=== PATIENT | male | born 1965 | race Caucasian/White ===

== ENCOUNTER 2019-11-01 23:50 | Emergency (ER) | payer BC, OTHER ==
[2019-11-01] MEDS ORDERED: LORazepam 2 MG/ML Syringe IVPUSH ONE (23:54)
[2019-11-02] MEDS ORDERED: LORazepam 2 MG/ML Syringe IVPUSH ONE (00:08)
[2019-11-02] MEDS ORDERED: Sodium Chloride 0.9% 1,000 ML IV ONE (00:08)
[2019-11-02 00:29] LABS: CHLORIDE,CL 104 mEq/L (98-106); SODIUM,NA 142 mEq/L (136-145)
--- NOTE | 2019-11-02 00:51 | EDM.PDOC ---
ED HPI GENERAL MEDICAL PROBLEM - General Chief Complaint: General Stated Complaint: adverse side effects from marijuana Time Seen by Provider: 11/01/19 23:50 Source of Information: Reports: EMS, Family ( and daughter) History Limitations: Reports: Altered Mental Status - History of Present Illness INITIAL COMMENTS - FREE TEXT/NARRATIVE: This patient is a 54 year old male that presents to the ER. Patient arrives via EMS with daughter and mother right behind. The reports that the patient was prescribed medical marijuana. She reports that for the first time he tried to smoke it, 1/3 of it which is what he was prescribed. She reports that was about 10pm, then about 10:15pm she heard him yelling for help. She reports that the patient kept saying he was not feeling right. The patient arrives in the ER with EMS, he is confused, combative, and agitated. Onset: Today, Sudden Onset Date: 11/02/19 Onset Time: 22:15 Severity: Moderate Improves with: Reports: None Worsens with: Reports: None Associated Symptoms: Reports: Confusion. Denies: Chest Pain, Cough, cough w sputum, Diaphoresis, Fever/Chills, Headaches, Loss of Appetite, Malaise, Nausea/Vomiting, Rash, Seizure, Shortness of Breath, Syncope, Weakness - Related Data Allergies Allergy/AdvReac Type Severity Reaction Status Date / Time Sulfa (Sulfonamide Allergy Cannot Verified 11/02/19 00:20 Antibiotics) Remember Home Meds: Home Meds Cyclobenzaprine [Flexeril] 10 mg PO BEDTIME 11/02/19 [History] L.acidoph,Paracasei, B.lactis [Probiotic] 1 cap PO DAILY 11/02/19 [History] Omeprazole 20 mg PO DAILY 11/02/19 [History] Past Medical History Gastrointestinal History: Reports: GERD Musculoskeletal History: Reports: Fibromyalgia Hematologic History: Reports: Other (See Below) Other Hematologic History: thalassemia Social & Family History - Tobacco Use Smoking Status *Q: Current Every Day Smoker Years of Tobacco use: 30 Packs/Tins Daily: 0.5 - Caffeine Use Caffeine Use: Reports: None - Recreational Drug Use Recreational Drug Type: Reports: Marijuana/Hashish ED ROS GENERAL - Review of Systems Review Of Systems: See Below Constitutional: Reports: Malaise, Weakness (generally) HEENT: Reports: No Symptoms Respiratory: Reports: No Symptoms Cardiovascular: Reports: No Symptoms Endocrine: Reports: No Symptoms GI/Abdominal: Reports: No Symptoms : Reports: No Symptoms Musculoskeletal: Reports: No Symptoms Skin: Reports: No Symptoms Neurological: Reports: Confusion, Tremors Psychiatric: Reports: Agitation, Anxiety, Confusion Hematologic/Lymphatic: Reports: No Symptoms Immunologic: Reports: No Symptoms ED EXAM, GENERAL - Physical Exam Exam: See Below Exam Limited By: Altered Mental Status General Appearance: Anxious, Other (combative, agitated) Eye Exam: Bilateral Eye: Normal Inspection, PERRL Ears: Normal External Exam, Normal Canal, Hearing Grossly Normal, Normal TMs Ear Exam: Bilateral Ear: Auricle Normal, Canal Normal, TM normal Nose: Normal Inspection, Normal Mucosa, No Blood Throat/Mouth: Normal Inspection, Normal Lips, Normal Teeth, Normal Gums, Normal Oropharynx, Normal Voice, No Airway Compromise Head: Atraumatic, Normocephalic Neck: Normal Inspection, Supple, Non-Tender, Full Range of Motion Respiratory/Chest: No Respiratory Distress, Lungs Clear, Normal Breath Sounds, No Accessory Muscle Use, Chest Non-Tender, Other (sternal rub, does groan and grunt pain with voluntary movement) Cardiovascular: Normal Peripheral Pulses, No Edema, No Gallop, No JVD, No Murmur, No Rub, Tachycardia (102 on exam) Peripheral Pulses: 2+: Radial (L), Radial (R), Posterior Tibial (L), Posterior Tibial (R) GI/Abdominal: Normal Bowel Sounds, Soft, Non-Tender, No Organomegaly, No Distention, No Abnormal Bruit, No Mass, Pelvis Stable Back Exam: Normal Inspection, Full Range of Motion. No: CVA Tenderness (L), CVA Tenderness (R) Extremities: Normal Inspection, Normal Range of Motion, Non-Tender, No Pedal Edema, Normal Capillary Refill Neurological: Confused, Disoriented, Slow to Respond, Other (tremors to arms and legs, voluntary. GCS is 8. no eye opening, withdraws to pain, inappropriate words. Protecting his airway. No unilateral weaknesses. ) Psychiatric: Anxious, Other (agitated, combative.) Skin Exam: Warm, Dry, Intact, Normal Color, No Rash Lymphatic: No Adenopathy Course - Vital Signs Last Recorded V/S: Last Vital Signs Temp 97.3 F 11/02/19 00:25 Pulse 100 11/01/19 23:50 Resp 14 11/02/19 04:30 BP 160/75 H 11/02/19 04:30 Pulse Ox 98 11/02/19 04:30 - Orders/Labs/Meds Orders: Active Orders 24 hr Category Date Time Status Telemetry Monitoring [Cardiac Monitoring] [RC] . Care 11/01/19 23:30 Active DIRECTED Head wo Cont [CT] Stat Exams 11/02/19 23:54 Taken Labs: Laboratory Tests 11/02/19 11/02/19 11/02/19 Range/Units 00:06 00:06 00:06 WBC 17.0 H (5.0-10.0) 10^3/uL RBC 5.59 (4.50-6.00) 10^6/uL Hgb 11.6 L (14.0-18.0) g/dL Hct 35.2 L (40.0-54.0) % MCV 63.0 L (82.0-94.0) fL MCH 20.8 L (27.0-32.0) pg MCHC 33.0 (33.0-38.0) g/dL RDW Coeff of Moises 18.5 H (11.0-15.0) % Plt Count 187 (150-400) 10^3/uL Neut % (Auto) 75.2 (35-85) % Lymph % (Auto) 18.1 (10-55) % Troup % (Auto) 4.6 (0-16) % Eos % (Auto) 1.8 (0-5) % Baso % (Auto) 0.3 (0-3) % Neut # (Auto) 12.82 H (1.80-7.00) 10^3/uL Lymph # (Auto) 3.08 (1.00-4.80) 10^3/uL Troup # (Auto) 0.79 (0.00-0.80) 10^3/uL Eos # (Auto) 0.30 (0.00-0.45) 10^3/uL Baso # (Auto) 0.05 10^3/uL Sodium (136-145) mEq/L Potassium (3.5-5.0) mEq/L Chloride (98-106) mEq/L Carbon Dioxide (21-32) mmol/L BUN (7-18) mg/dL Creatinine (0.7-1.3) mg/dL Est Cr Clr Drug Dosing mL/min Estimated GFR (MDRD) (>=60) mL/min Glucose (75-99) mg/dL Calcium (8.4-10.1) mg/dL Total Bilirubin (0.0-1.0) mg/dL AST (15-37) U/L ALT (12-78) U/L Alkaline Phosphatase (46-116) U/L Total Protein (6.4-8.2) g/dL Albumin (3.4-5.0) g/dL Urine Color Yellow (YELLOW) Urine Appearance Clear (CLEAR) Urine pH 5.5 (4.5-8.0) Ur Specific Emerson >= 1.030 H (1.003-1.020) Urine Protein 30 H (NEGATIVE) mg/dL Urine Glucose (UA) Negative (NEGATIVE) mg/dL Urine Ketones Negative (NEGATIVE) mg/dL Urine Occult Blood Small H (NEGATIVE) Urine Nitrite Negative (NEGATIVE) Urine Bilirubin Negative (NEGATIVE) Urine Urobilinogen 0.2 (0.2-1.0) EU/dL Ur Leukocyte Esterase Negative (NEGATIVE) Urine RBC 0-5 (0-5) /HPF Urine WBC Not seen (0-5) /HPF Urine Opiates Screen Negative (NEGATIVE) Ur Oxycodone Screen Negative (NEGATIVE) Urine Methadone Screen Negative (NEGATIVE) Ur Barbiturates Screen Negative (NEGATIVE) U Tricyclic Antidepress Positive H (NEGATIVE) Ur Phencyclidine Scrn Negative (NEGATIVE) Ur Amphetamine Screen Negative (NEGATIVE) U Methamphetamines Scrn Negative (NEGATIVE) Urine MDMA Screen Negative (NEGATIVE) U Benzodiazepines Scrn Negative (NEGATIVE) Urine Cocaine Screen Negative (NEGATIVE) U Marijuana (THC) Screen Positive H (NEGATIVE) Ethyl Alcohol (0-3) mg/dL 11/02/19 Range/Units 00:06 WBC (5.0-10.0) 10^3/uL RBC (4.50-6.00) 10^6/uL Hgb (14.0-18.0) g/dL Hct (40.0-54.0) % MCV (82.0-94.0) fL MCH (27.0-32.0) pg MCHC (33.0-38.0) g/dL RDW Coeff of Moises (11.0-15.0) % Plt Count (150-400) 10^3/uL Neut % (Auto) (35-85) % Lymph % (Auto) (10-55) % Troup % (Auto) (0-16) % Eos % (Auto) (0-5) % Baso % (Auto) (0-3) % Neut # (Auto) (1.80-7.00) 10^3/uL Lymph # (Auto) (1.00-4.80) 10^3/uL Troup # (Auto) (0.00-0.80) 10^3/uL Eos # (Auto) (0.00-0.45) 10^3/uL Baso # (Auto) 10^3/uL Sodium 142 (136-145) mEq/L Potassium 3.5 (3.5-5.0) mEq/L Chloride 104 (98-106) mEq/L Carbon Dioxide 28 (21-32) mmol/L BUN 12 (7-18) mg/dL Creatinine 1.0 (0.7-1.3) mg/dL Est Cr Clr Drug Dosing 88.70 mL/min Estimated GFR (MDRD) > 60 (>=60) mL/min Glucose 142 H (75-99) mg/dL Calcium 8.3 L (8.4-10.1) mg/dL Total Bilirubin 0.5 (0.0-1.0) mg/dL AST 16 (15-37) U/L ALT 17 (12-78) U/L Alkaline Phosphatase 79 (46-116) U/L Total Protein 6.6 (6.4-8.2) g/dL Albumin 3.3 L (3.4-5.0) g/dL Urine Color (YELLOW) Urine Appearance (CLEAR) Urine pH (4.5-8.0) Ur Specific Emerson (1.003-1.020) Urine Protein (NEGATIVE) mg/dL Urine Glucose (UA) (NEGATIVE) mg/dL Urine Ketones (NEGATIVE) mg/dL Urine Occult Blood (NEGATIVE) Urine Nitrite (NEGATIVE) Urine Bilirubin (NEGATIVE) Urine Urobilinogen (0.2-1.0) EU/dL Ur Leukocyte Esterase (NEGATIVE) Urine RBC (0-5) /HPF Urine WBC (0-5) /HPF Urine Opiates Screen (NEGATIVE) Ur Oxycodone Screen (NEGATIVE) Urine Methadone Screen (NEGATIVE) Ur Barbiturates Screen (NEGATIVE) U Tricyclic Antidepress (NEGATIVE) Ur Phencyclidine Scrn (NEGATIVE) Ur Amphetamine Screen (NEGATIVE) U Methamphetamines Scrn (NEGATIVE) Urine MDMA Screen (NEGATIVE) U Benzodiazepines Scrn (NEGATIVE) Urine Cocaine Screen (NEGATIVE) U Marijuana (THC) Screen (NEGATIVE) Ethyl Alcohol < 3 (0-3) mg/dL Meds: Medications Discontinued Medications Generic Name Dose Route Start Last Admin Trade Name Jamie PRN Reason Stop Dose Admin Sodium Chloride 1,000 mls @ 1,000 mls/hr 11/02/19 00:08 11/02/19 00:14 Normal Saline IV 11/02/19 01:07 1,000 mls/hr .BOLUS ONE Administration Lorazepam 1 mg 11/01/19 23:54 11/02/19 00:01 Ativan IVPUSH 11/01/19 23:55 1 mg ONETIME ONE Administration Lorazepam 0.5 mg 11/02/19 00:08 11/02/19 00:09 Ativan IVPUSH 11/02/19 00:09 0.5 mg ONETIME ONE Administration - Radiology Interpretation Free Text/Narrative:: Head CT: No acute findings - Re-Assessments/Exams Free Text/Narrative Re-Assessment/Exam: 11/02/19 00:05 Upon patient arrival, patient was given 1mg of Ativan. This seemed to help him relax, but then catheter was performed and patient again became agitated and combative. 0.5mg Ativan then was given. After this, the patient was relaxed and resting comfortably. Voluntarily movements have subsided. 11/02/19 01:06 Patient is resting quietly. Patient is drowsy, but aroused. He is oriented to self, place, and year. I have spoken to his and daughter and obtained medical hx, meds, allergies. Reviewed patient labs which are consistent with his hx of thalassemia. Patient reports that he did not take his Flexeril today, but took it yesterday evening. He is becoming more oriented and talkative, but still remains drowsy. 11/02/19 01:25 I spoke to daughter and for about 15 minutes again about the patient and his improvement in the ER. Patient is drowsy but responding. We discussed possible causes of patient behaviors. Including medical marijuana and use of Flexeril. Discussed not using again until reseen by the prescriber.Will keep patient extended ER and discharge once patient becomes more alert. 11/02/19 02:06 Patient is sitting up in bed, drowsy but aroused. 11/02/19 08:25 Patient is walking around the exam room, he has eaten breakfast. Standing and putting on pants without difficulty. He is alert and oriented. We discussed his presentation, all results. His will come and get him today. Departure - Departure Time of Disposition: 08:50 Disposition: Home, Self-Care 01 Condition: Good Clinical Impression: Marijuana intoxication Qualifiers: Complication of substance-induced condition: with delirium Qualified Code(s): F12.921 - Cannabis use, unspecified with intoxication delirium - Discharge Information *PRESCRIPTION DRUG MONITORING PROGRAM REVIEWED*: Not Applicable *COPY OF PRESCRIPTION DRUG MONITORING REPORT IN PATIENT AMMON: Not Applicable Instructions: What You Need to Know About Marijuana Use Forms: ED Department Discharge Additional Instructions: Followup with your primary care provider Followup with prescriber of your medications Return to the ER for worsening of condition or any emergent concerns Do not use the medical marijuana until seen by the prescriber or primary care provider Sepsis Event Note (ED) - Evaluation Sepsis Screening Result: No Definite Risk - Focused Exam Vital Signs: Vital Signs Temp Pulse Resp BP Pulse Ox 11/02/19 04:30 14 160/75 H 98 11/02/19 01:45 14 163/92 H 98 11/02/19 01:07 14 171/87 H 98 11/02/19 00:25 97.3 F 16 165/90 H 97 11/01/19 23:50 97.3 F 100 18 143/78 H 100 - My Orders Last 24 Hours: My Active Orders 11/01/19 23:30 Telemetry Monitoring [Cardiac Monitoring] [RC] . DIRECTED 11/02/19 23:54 Head wo Cont [CT] Stat - Assessment/Plan Last 24 Hours: My Active Orders 11/01/19 23:30 Telemetry Monitoring [Cardiac Monitoring] [RC] . DIRECTED 11/02/19 23:54 Head wo Cont [CT] Stat Plan: PLEASE SEE RN NOTE FOR PFSH.
== END 2019-11-02 09:50 | disposition home or self-care (01) ==
LOC: CC.ED 23:50
DX: F12.921 Cannabis use, unspecified with intoxication delirium (principal); K21.9 Gastro-esophageal reflux disease without esophagitis; F17.210 Nicotine dependence, cigarettes, uncomplicated; Z88.2 Allergy status to sulfonamides; Z79.899 Other long term (current) drug therapy
CPT/HCPCS: 36415; 70450; 80053; 80305-QW; 80307; 81001; 85025; 96361; 96374; 99285-25; J2060; J7030